=== PATIENT | female | born 1990 | race Caucasian/White ===

== ENCOUNTER 2017-10-16 09:51 | Inpatient (IN) | payer OTHER ==
[2017-10-16 10:17] VITALS: RESP 18
[2017-10-16 10:59] LABS: Basophils % (A) 0 %; Eosinophils # (A) 0.3 k/uL (0-0.7); Eosinophils % (A) 2 %; HCT 40.9 % (34.0-46.0); HGB 13.9 gm/dL (11.4-16.0); Lymphocytes # (A) 1.4 k/uL (1.0-4.8); Lymphocytes % (A) 13 %; MCH 26.8 pg (25.0-35.0); MCV 78.9 fL (80.0-100.0); Mean Platelet Volume 6.9; Microcytosis Slight; Monocytes # (A) 0.7 k/uL (0-1.0); Monocytes % (A) 7 %; Neutrophils # (A) 8.3 k/uL (1.3-7.7); Neutrophils % (A) 76 %; Platelet Count 258 k/uL (150-450); RBC 5.19 m/uL (3.80-5.40); RDW 15.3 % (11.5-15.5); WBC 10.8 k/uL (3.8-10.6)
[2017-10-16 11:08] LABS: ALT 513 U/L (9-52); AST 295 U/L (14-36); Albumin 3.8 g/dL (3.5-5.0); Alkaline Phosphatase 95 U/L (38-126); Anion Gap 13 mmol/L; Blood Urea Nitrogen 11 mg/dL (7-17); Carbon Dioxide 24 mmol/L (22-30); Chloride 103 mmol/L (98-107); Glucose 105 mg/dL (74-99); Potassium 3.9 mmol/L (3.5-5.1); Sodium 140 mmol/L (137-145); Total Bilirubin 0.7 mg/dL (0.2-1.3); Total Protein 6.5 g/dL (6.3-8.2)
[2017-10-16 11:19] LABS: Calcium 4.6 mg/dL (8.4-10.2)
[2017-10-16] MEDS ORDERED: CALCIUM CHLORIDE 1,000 MG in SODIUM CHLORIDE 0.9% 100 ML IVPB STA ×2 (11:33→22:35)
--- NOTE | 2017-10-16 12:49 | ED ---
General Adult HPI - General Chief complaint: Seizure Stated complaint: Seizure Time Seen by Provider: 10/16/17 10:26 Source: patient, RN notes reviewed Mode of arrival: wheelchair Limitations: no limitations - History of Present Illness Initial comments: Patient with 27-year-old female significant past medical history for hypothyroid , presenting for seizure. Patient does admit that she takes calcium supplement but has not been taking it over the last week or longer. She states that she was performed by her boyfriend this morning he woke up with her having a seizure. She states she does not remember this. She states she was laying in bed. Patient's mother at bedside states that she was diagnosed with hyperparathyroidism had symptoms similar to this since . States that when her calcium drops she has seizures. Patient does admit some muscle aches. She denies any other complaints or symptoms at this time. Patient denies any recent fever, chills, shortness of breath, chest pain, back pain, abdominal pain, nausea or vomiting, dysuria or hematuria, constipation or diarrhea, headaches or visual changes, or any other complaints. - Related Data Home Medications Medication Instructions Recorded Confirmed Calcitriol [Rocaltrol] 1 mcg PO DAILY 03/02/15 10/16/17 Levothyroxine Sodium [Synthroid] 50 mcg PO DAILY 03/02/15 10/16/17 Calcitriol [Rocaltrol] 0.25 mcg PO DAILY 10/16/17 10/16/17 Allergies Allergy/AdvReac Type Severity Reaction Status Date / Time No Known Allergies Allergy Verified 10/16/17 10:49 Review of Systems ROS Statement: Those systems with pertinent positive or pertinent negative responses have been documented in the HPI. ROS Other: All systems not noted in ROS Statement are negative. Past Medical History Past Medical History: Thyroid Disorder Additional Past Medical History / Comment(s): hypothyroidism. hypoparathyroidism. pt states only one working kidney. OB history: This is her first and she has had care with me since 13 weeks. A neg , abs neg, Rub nonimmune, HIV neg, increased risk of Down's on quad screen. She did receive rhogam at 29 weeks. reactiv NSTs. GBS+ History of Any Multi-Drug Resistant Organisms: None Reported Additional Past Surgical History / Comment(s): kidney surgery to "fix reflux" x2 2000. hernia repair 1993 Past Anesthesia/Blood Transfusion Reactions: No Reported Reaction Past Psychological History: Depression Smoking Status: Current every day smoker Past Alcohol Use History: Occasional Past Drug Use History: Marijuana - Past Family History Mother Family Medical History: Diabetes Mellitus, Hypertension General Exam - General Exam Comments Initial Comments: General: The patient is awake and alert, in no distress, and does not appear acutely ill. Eye: Pupils are equal, round and reactive to light, extra-ocular movements are intact. No nystagmus. There is normal conjunctiva bilaterally. No signs of icterus. Ears, nose, mouth and throat: There are moist mucous membranes and no oral lesions. Neck: The neck is supple, there is no tenderness or JVD. Cardiovascular: There is a regular rate and rhythm. No murmur, rub or gallop is appreciated. Respiratory: Lungs are clear to auscultation, respirations are non-labored, breath sounds are equal. No wheezes, stridor, rales, or rhonchi. Musculoskeletal: Normal ROM, no tenderness. Strength 5/5. Sensation intact. Pulses equal bilaterally 2+. Neurological: A&O x 3. CN II-XII intact, There are no obvious motor or sensory deficits. Coordination appears grossly intact. Speech is normal. Skin: Skin is warm and dry and no rashes or lesions are noted. Psychiatric: Cooperative, appropriate mood & affect, normal judgment. Limitations: no limitations Course Vital Signs 10/16/17 10/16/17 10/16/17 10:12 10:40 12:39 Temperature 98.1 F 99.4 F Pulse Rate 85 63 Respiratory 18 18 Rate Blood Pressure 114/61 O2 Sat by Pulse 99 98 Oximetry 10/16/17 12:40 Temperature Pulse Rate Respiratory Rate Blood Pressure 118/61 O2 Sat by Pulse Oximetry Medical Decision Making - Medical Decision Making Patient's EKG performed at 1141: Shows normal sinus rhythm at 69 bpm. FL interval 158. QRS 76. QT/QTc 494/529. Does show prolonged QT. No other acute abnormality. Patient resting completely at this time. Her calcium level IV.6. Patient has a history of hyperparathyroid. Mother stating that symptoms have been similar to this in the past she's had seizures. Patient given calcium IV here the emergency room. Will be admitted for hypocalcemia - Lab Data Result diagrams: 10/16/17 10:41 10/16/17 10:41 Lab Results 10/16/17 10/16/17 10/16/17 Range/Units 10:41 10:41 12:31 WBC 10.8 H (3.8-10.6) k/uL RBC 5.19 (3.80-5.40) m/uL Hgb 13.9 (11.4-16.0) gm/dL Hct 40.9 (34.0-46.0) % MCV 78.9 L (80.0-100.0) fL MCH 26.8 (25.0-35.0) pg MCHC 34.0 (31.0-37.0) g/dL RDW 15.3 (11.5-15.5) % Plt Count 258 (150-450) k/uL Neutrophils % 76 % Lymphocytes % 13 % Monocytes % 7 % Eosinophils % 2 % Basophils % 0 % Neutrophils # 8.3 H (1.3-7.7) k/uL Lymphocytes # 1.4 (1.0-4.8) k/uL Monocytes # 0.7 (0-1.0) k/uL Eosinophils # 0.3 (0-0.7) k/uL Basophils # 0.0 (0-0.2) k/uL Microcytosis Slight Sodium 140 (137-145) mmol/L Potassium 3.9 (3.5-5.1) mmol/L Chloride 103 (98-107) mmol/L Carbon Dioxide 24 (22-30) mmol/L Anion Gap 13 mmol/L BUN 11 (7-17) mg/dL Creatinine 0.83 (0.52-1.04) mg/dL Est GFR (CKD-EPI)AfAm >90 (>60 ml/min/1.73 sqM) Est GFR (CKD-EPI)NonAf >90 (>60 ml/min/1.73 sqM) Glucose 105 H (74-99) mg/dL Calcium 4.6 L* (8.4-10.2) mg/dL Total Bilirubin 0.7 (0.2-1.3) mg/dL AST 295 H (14-36) U/L ALT 513 H (9-52) U/L Alkaline Phosphatase 95 (38-126) U/L Total Protein 6.5 (6.3-8.2) g/dL Albumin 3.8 (3.5-5.0) g/dL Urine Color Urine Appearance (Clear) Urine pH (5.0-8.0) Ur Specific [place] (1.001-1.035) Urine Protein (Negative) Urine Glucose (UA) (Negative) Urine Ketones (Negative) Urine Blood (Negative) Urine Nitrite (Negative) Urine Bilirubin (Negative) Urine Urobilinogen (<2.0) mg/dL Ur Leukocyte Esterase (Negative) Urine RBC (0-5) /hpf Urine WBC (0-5) /hpf Ur Squamous Epith Cells (0-4) /hpf Urine Bacteria (None) /hpf Urine Mucus (None) /hpf Urine HCG, Qual Not Detected (Not Detectd) 10/16/17 Range/Units 12:31 WBC (3.8-10.6) k/uL RBC (3.80-5.40) m/uL Hgb (11.4-16.0) gm/dL Hct (34.0-46.0) % MCV (80.0-100.0) fL MCH (25.0-35.0) pg MCHC (31.0-37.0) g/dL RDW (11.5-15.5) % Plt Count (150-450) k/uL Neutrophils % % Lymphocytes % % Monocytes % % Eosinophils % % Basophils % % Neutrophils # (1.3-7.7) k/uL Lymphocytes # (1.0-4.8) k/uL Monocytes # (0-1.0) k/uL Eosinophils # (0-0.7) k/uL Basophils # (0-0.2) k/uL Microcytosis Sodium (137-145) mmol/L Potassium (3.5-5.1) mmol/L Chloride (98-107) mmol/L Carbon Dioxide (22-30) mmol/L Anion Gap mmol/L BUN (7-17) mg/dL Creatinine (0.52-1.04) mg/dL Est GFR (CKD-EPI)AfAm (>60 ml/min/1.73 sqM) Est GFR (CKD-EPI)NonAf (>60 ml/min/1.73 sqM) Glucose (74-99) mg/dL Calcium (8.4-10.2) mg/dL Total Bilirubin (0.2-1.3) mg/dL AST (14-36) U/L ALT (9-52) U/L Alkaline Phosphatase (38-126) U/L Total Protein (6.3-8.2) g/dL Albumin (3.5-5.0) g/dL Urine Color Yellow Urine Appearance Clear (Clear) Urine pH 6.5 (5.0-8.0) Ur Specific [place] 1.013 (1.001-1.035) Urine Protein Trace H (Negative) Urine Glucose (UA) Negative (Negative) Urine Ketones Negative (Negative) Urine Blood Negative (Negative) Urine Nitrite Negative (Negative) Urine Bilirubin Negative (Negative) Urine Urobilinogen 2.0 (<2.0) mg/dL Ur Leukocyte Esterase Large H (Negative) Urine RBC 1 (0-5) /hpf Urine WBC 11 H (0-5) /hpf Ur Squamous Epith Cells 2 (0-4) /hpf Urine Bacteria Rare H (None) /hpf Urine Mucus Rare H (None) /hpf Urine HCG, Qual (Not Detectd) Disposition Clinical Impression: Hypocalcemia, History of hypoparathyroidism, Seizure Disposition: ADMITTED IP TO THIS [facility] Condition: Good Is patient prescribed a controlled substance at d/c from ED?: No Referrals: Chris To MD [Primary Care Provider] - 1-2 days Time of Disposition: 13:32
[2017-10-16 13:08] LABS: Appearance,Urine Clear (Clear); Bacteria,Urine Rare /hpf; Bilirubin,Urine Negative (Negative); Blood,Urine Negative (Negative); Color,Urine Yellow; Glucose,Urine (UA) Negative (Negative); Ketones,Urine Negative (Negative); Leukocyte Esterase,Urine Large (Negative); Mucus,Urine Rare /hpf; Nitrite,Urine Negative (Negative); PH, Urine 6.5 (5.0-8.0); Protein,Urine Trace (Negative); RBC,Urine 1 /hpf (0-5); Specific Gravity,Urine 1.013 (1.001-1.035); Squamous Epithelial Cell,Urine 2 /hpf (0-4); WBC,Urine 11 /hpf (0-5)
[2017-10-16] MEDS ORDERED: ONDANSETRON 4 MG/2 ML VIAL IVP PRN (13:33)
[2017-10-16] MEDS ORDERED: ACETAMINOPHEN TAB 325 MG TAB PO PRN (13:33)
[2017-10-16] MEDS ORDERED: LORazepam 2 MG/ML INJ IV PRN (13:33)
[2017-10-16 13:39] LABS: Ionized Calcium 2.7 mg/dL (4.5-5.3)
[2017-10-16 13:54] LABS: Magnesium 1.7 mg/dL (1.6-2.3); Phosphorus 3.9 mg/dL (2.5-4.5)
[2017-10-16 18:39] VITALS: BMI 38.0
[2017-10-16] MEDS: NICOTINE 14MG/24HR PATCH TRANSDERM SCH (20:20)
[2017-10-16] MEDS: LEVOTHYROXINE 50 MCG TAB PO SCH (20:20)
--- NOTE | 2017-10-16 23:12 | HP ---
HISTORY AND PHYSICAL DATE OF SERVICE: 10/16/2017 PRESENTING COMPLAINT: Seizure. HISTORY OF PRESENTING COMPLAINT: A 27-year-old patient who has been following with Dr. To. The patient has known history of hypothyroid, hypoparathyroid since childhood and depression. The patient has not been taking medications for last 2 months. She states she has been having scheduling problems with Dr. To's office. The patient lives with her 2-year-old child. The patient was on Facebook at 5:00 this morning. It was kind of unusual and a friend decided to check on her. The patient had had 2 episodes of seizures. The patient also bit her tongue. These were generalized tonic-clonic with frothing of the mouth. The patient did not have much recollection of the episode and she was brought in the ER. Patient was found to have a calcium level of 4.6, an ionized calcium level of 2.7. The patient was given 1 amp of calcium chloride. We also gave some magnesium. Currently patient's male friend and her best lady friend were also present in the room. The patient does smoke about half a pack cigarettes a day and does 1 joint of marijuana a day a day. REVIEW OF SYSTEMS: CONSTITUTIONAL: Tired. HEENT: Some loss of hair. RESPIRATORY: None. CARDIOVASCULAR: None. GASTROINTESTINAL: None. GENITOURINARY: None. MUSCULOSKELETAL: None. DERMATOLOGICAL: None. HEMATOLOGIC: None. LYMPHATIC: None. PSYCHIATRY: Some anxiety. NEUROLOGICAL: As above. No focal weakness. PAST MEDICAL HISTORY: Hypothyroid, hypoparathyroid, 1 working kidney, scoliosis, also seizures. PAST SURGICAL HISTORY: Kidney surgery to fix reflux, hernia repair. PSYCH HISTORY: Depression. SOCIAL HISTORY: Smokes about half a pack a day, marijuana about 1 joint a day, lives with her 2-year- old child. FAMILY HISTORY: Diabetes and hypertension. HOME MEDICATIONS: 1. Synthroid 50 mcg a day. 2. Rocaltrol 1.25 mcg p.o. daily. ALLERGIES: None. EXAMINATION: Temperature 98.1, pulse 85, respirations 18, blood pressure 114/61, pulse ox 99% on room air. GENERAL APPEARANCE: Well-built, BMI 38.1. Lying in bed, awake. EYES: Pupils equal. Conjunctivae normal. HEENT: A bit of receding hairline, coarse hair. External appearance of nose and ears normal. Oral cavity normal. NECK: JVD not raised. Mass not palpable. RESPIRATORY: Effort normal. Lungs are clear. CARDIOVASCULAR: First and second sounds normal. No edema. ABDOMEN: Soft, nontender. Liver and spleen not palpable. LYMPHATIC: No lymph nodes palpable in neck or axillae. PSYCHIATRY: Alert and oriented cardiac enzymes. Mood and affect slightly anxious- appearing. NEUROLOGICAL: Pupils equal. Cranial nerve grossly intact. Power and sensation grossly intact. INVESTIGATIONS: White count 10.8, hemoglobin 3.9. BUN, creatinine are normal. Calcium is 4.6, ionized calcium is 2.7, magnesium 1.7. AST 295. ALT 513. ASSESSMENT: 1. The patient with recurrent seizures in the setting of hypocalcemia. 2. Severe hypocalcemia in a patient with known hypoparathyroidism who has not been taking her medications. 3. Medical noncompliance. 4. Hypothyroidism. 5. Increased liver enzymes, probably hepatic steatosis, need to rule out other causes. 6. Obesity; BMI 38.1. 7. Chronic nicotine dependence. Patient is a cigarette smoker. 8. Chronic marijuana use. 9. Depression, not otherwise specified. PLAN: Patient did receive 1 dose of IV calcium chloride in the ER. Will give one more dose right now. We will check, repeat the patient's calcium in the morning. Seizure precautions are in place. Will send off for hepatitis panel and also do a liver ultrasound in view of the elevated LFTs. The patient's abdominal examination is otherwise benign. Patient also will be given a nicotine patch. Seizure precautions are in place. Neurology was consulted. I had an extensive talk with the patient and friend about the importance of taking her medication, also involves the life of her 2- year-old child at home. Smoking cessation counseling was done. More than 3 minutes was spent on this aspect of the case. The patient will be given a nicotine patch. Will also get a social work professor consultation. MMODL / IJN: [id number] /
[2017-10-16] MEDS: ENOXAPARIN 40 MG/0.4 ML SYRINGE SQ SCH (23:55)
[2017-10-17 06:22] LABS: Basophils # (A) 0.1 k/uL (0-0.2); Basophils % (A) 1 %; Eosinophils # (A) 0.3 k/uL (0-0.7); Eosinophils % (A) 3 %; HCT 44.2 % (34.0-46.0); HGB 13.9 gm/dL (11.4-16.0); Lymphocytes # (A) 1.9 k/uL (1.0-4.8); Lymphocytes % (A) 22 %; MCH 25.5 pg (25.0-35.0); MCHC 31.3 g/dL (31.0-37.0); MCV 81.3 fL (80.0-100.0); Mean Platelet Volume 6.6; Monocytes # (A) 0.7 k/uL (0-1.0); Monocytes % (A) 8 %; Neutrophils # (A) 5.8 k/uL (1.3-7.7); Neutrophils % (A) 66 %; Platelet Count 239 k/uL (150-450); RBC 5.44 m/uL (3.80-5.40); RDW 15.3 % (11.5-15.5); WBC 8.9 k/uL (3.8-10.6)
[2017-10-17 06:34] LABS: ALT 512 U/L (9-52); AST 275 U/L (14-36); Albumin 3.7 g/dL (3.5-5.0); Alkaline Phosphatase 98 U/L (38-126); Anion Gap 14 mmol/L; Blood Urea Nitrogen 9 mg/dL (7-17); Carbon Dioxide 26 mmol/L (22-30); Chloride 102 mmol/L (98-107); Glucose 88 mg/dL (74-99); Magnesium 1.6 mg/dL (1.6-2.3); Potassium 3.7 mmol/L (3.5-5.1); Sodium 142 mmol/L (137-145); Total Bilirubin 0.9 mg/dL (0.2-1.3); Total Protein 6.4 g/dL (6.3-8.2)
[2017-10-17 06:44] LABS: Calcium 6.1 mg/dL (8.4-10.2)
[2017-10-17] MEDS: ENOXAPARIN 40 MG/0.4 ML SYRINGE SQ SCH (08:57)
[2017-10-17] MEDS: CALCITRIOL 0.25 MCG CAP PO SCH (08:57)
[2017-10-17] MEDS: NICOTINE 14MG/24HR PATCH TRANSDERM SCH (08:57)
[2017-10-17] MEDS ORDERED: CALCITRIOL 1 MCG PO SCH (09:00)
--- NOTE | 2017-10-17 09:44 | US ---
EXAMINATION TYPE: US abdomen limited DATE OF EXAM: 10/17/2017 COMPARISON: NONE CLINICAL HISTORY: increased LFT. EXAM MEASUREMENTS: Liver Length: 13.1 cm Gallbladder Wall: 0.2 cm CBD: 0.4 cm Right Kidney: 11.3 x 4.5 x 4.7 cm Large body habitus, patient had difficulty holding her breath. Technically difficult study. Pancreas: portions visualized wnl, somewhat limited views Liver: two hypoechoic masses seen, left lobe measures 1.9 x 1.3 x 2.3cm, right lobe measures 1.5 x 1 .3 x 1.5cm Gallbladder: wnl Evidence for sonographic Kessler's sign: no CBD: wnl Right Kidney: No hydronephrosis or masses seen, inferior pole obscured by bowel gas IMPRESSION: Exam is limited. Indeterminate liver masses. Liver MRI may be of benefit.
[2017-10-17] MEDS ORDERED: CALCIUM CHLORIDE 1,000 MG in SODIUM CHLORIDE 0.9% 100 ML IVPB STA (11:52)
[2017-10-17] MEDS ORDERED: CALCIUM CARBONATE 500 MG CHEWABLE PO PRN (12:48)
[2017-10-17] MEDS ORDERED: CALCIUM CHLORIDE 1,000 MG in SODIUM CHLORIDE 0.9% 100 ML IVPB ONE (14:00)
[2017-10-17] MEDS: IOPAMIDOL-300 CONTRAST 30 ML VIAL (ORAL USE) PO PRN ×2 (18:24→19:24)
--- NOTE | 2017-10-17 18:34 | PN ---
PROGRESS NOTE DATE OF SERVICE: 10/17/2017 PRESENTING COMPLAINT: Seizure activity. INTERVAL HISTORY: This is a patient who presented with recurrent seizure activity, has not been taking her medications at home. LFTs were up. I did order an ultrasound that is showing a couple of liver masses. EEG has been ordered by Neurology. The patient's calcium still running low. Two amps of IV calcium was ordered by me this morning. No further episodes. The patient's friend is at the bedside. REVIEW OF SYSTEMS: Done for constitutional, cardiovascular, GI, pulmonary; relevant findings as above. CURRENT MEDICATIONS: Reviewed. EXAMINATION: Temperature 97, pulse 78, respirations 18, blood pressure 115/72 pulse ox 98% on room air. GENERAL APPEARANCE: Lying in bed awake, a bit anxious-appearing. EYES: Pupils equal. Conjunctivae normal. HEENT: External nose and ears normal. Oral cavity normal. NECK: JVD not raised. Mass not palpable. RESPIRATORY: Effort normal. Lungs are fair. CARDIOVASCULAR: First and second sounds normal. No edema. ABDOMEN: Soft, nontender. Liver and spleen not palpable. PSYCHIATRY: Alert and oriented x3. Mood and affect slightly anxious-appearing. INVESTIGATIONS: White count 8.9, hemoglobin 13.9. Calcium 6.1. Liver ultrasound defining 2 masses. ASSESSMENT: 1. Recurrent epilepsy in the setting of hypocalcemia, but given that patient is having a prodrome symptoms and loss of consciousness, need to look for a central cause, too. 2. Severe hypercalcemia from hypoparathyroidism. Patient was not taking her medications. 3. Medical noncompliance. 4. Hypothyroidism. 5. Two liver masses on liver ultrasound. Will do further workup. 6. Obesity; BMI 38.1. 7. Chronic nicotine dependence. Patient is a cigarette smoker. 8. Chronic marijuana use. 9. Depression, not otherwise specified. PLAN: At this point, will go ahead and order a CT scan of the chest, abdomen and pelvis with contrast. Dr. Andujar has also ordered MRI of the brain. Consultation to GI and Oncology to be done. Will also send off for alpha fetoprotein. The patient's hepatitis screen is pending. Care was discussed with the patient in the presence of offer friend. Follow from there. MMODL / IJN: [id number] /
--- NOTE | 2017-10-17 20:36 | CT ---
EXAMINATION TYPE: CT ChestAbdPelvis w con DATE OF EXAM: 10/17/2017 COMPARISON: NONE HISTORY: Abnormal US. CT DLP: 1414.3 mGycm Automated exposure control for dose reduction was used. CONTRAST: CT scan of the chest, abdomen and pelvis is performed with Oral Contrast and with IV Contrast, patien t injected with 100 mL of Isovue 300. FINDINGS: Lung bases are clear. There is no pleural effusion. Lungs are clear of infiltrate. There is no medias tinal adenopathy. Heart size is normal. There are no hilar masses. There is 2.5 cm sharply marginated rounded mass in the medial left breast. Thoracic aorta appears normal. There is no mediastinal adeno sameer. There is no pleural effusion. There is 2 cm area of nodular enhancement in the anterior right lobe of the liver. This could be a he mangioma. Bile ducts are not dilated. Gallbladder appears normal. Spleen appears normal. There is no pancreatic mass. There is no adrenal mass. Right kidney appears normal. Left kidney shows some cortic al thinning consistent with chronic pyelonephritis. There is no retroperitoneal adenopathy. There is no ascites. Bladder distends smoothly. There is no p elvic mass. Appendix appears normal. I see no intestinal wall thickening. There are no dilated loops. The bony structures appear intact. There is no evidence of free air. There is left side L5 spondylol ysis. There is no spondylolisthesis. IMPRESSION: Nodular focus of enhancement in the anterior right lobe of the liver is probably a lorrie ioma. Changes in the left kidney consistent with chronic pyelonephritis. No other discrete liver mass identified. Left breast mass. This could be evaluated with ultrasound if clinically indicated. Margins are sharp and this has high likelihood of fibroadenoma in this relatively young patient.
[2017-10-18 06:03] LABS: ALT 568 U/L (9-52); AST 299 U/L (14-36); Albumin 3.9 g/dL (3.5-5.0); Alkaline Phosphatase 108 U/L (38-126); Anion Gap 13 mmol/L; Blood Urea Nitrogen 13 mg/dL (7-17); Calcium 7.3 mg/dL (8.4-10.2); Carbon Dioxide 25 mmol/L (22-30); Chloride 102 mmol/L (98-107); Glucose 99 mg/dL (74-99); Potassium 3.9 mmol/L (3.5-5.1); Sodium 140 mmol/L (137-145); Total Bilirubin 0.9 mg/dL (0.2-1.3); Total Protein 6.8 g/dL (6.3-8.2)
[2017-10-18] MEDS: LEVOTHYROXINE 50 MCG TAB PO SCH (06:22)
[2017-10-18] MEDS: CALCITRIOL 0.25 MCG CAP PO SCH (08:24)
[2017-10-18] MEDS: ENOXAPARIN 40 MG/0.4 ML SYRINGE SQ SCH (08:24)
--- NOTE | 2017-10-18 09:14 | CONS ---
CONSULTATION DATE OF CONSULTATION: 10/17/2017 CHIEF COMPLAINT: Seizure. HISTORY OF PRESENT ILLNESS: The patient is a 27-year-old, female, who is being evaluated today on 10/17/2017 by the neurology service per the request of Dr. Sanchez for a seizure. The patient was brought into [facility] Emergency Room after she had a witnessed generalized tonic colonic seizure at home. The patient does not recall the event. The seizure lasted approximately 4 minutes and was followed by postictal confusion and drowsiness. The patient denies any previous history of seizures. She was brought into [facility] Emergency Room for further management. In the emergency room, her comprehensive metabolic profile showed severe hypocalcemia at 4.6 and hepatic insufficiency with an AST of 295, and an ALT of 513. Her alkaline phosphatase was normal. The patient does have history of hypoparathyroidism but ran out of her medication 2 months ago and did not get it refilled. Her CBC was normal. An abdominal ultrasound was done due to her elevated liver enzymes and 2 liver lesions/masses were identified. The patient was given calcium supplementation and admitted for further workup and management. At the time of my evaluation, she is lying in her bed and appears to be in no acute distress. She has not had any further seizure-like activity. Her repeat calcium level at this time was 6.1. PAST MEDICAL HISTORY: Hypoparathyroidism, hypothyroidism, scoliosis, renal surgery, hernia repair, depression. SOCIAL HISTORY: The patient smokes 1/2 pack of cigarettes daily. She does smoke marijuana daily. She denies any alcohol or IV drug use. FAMILY HISTORY: Positive for diabetes and hypertension. HOME MEDICATIONS: Reviewed in the chart. ALLERGIES: No known drug allergies. REVIEW OF SYSTEMS: CONSTITUTIONAL: Positive for fatigue. EYES: Negative. ENT: Negative. CARDIOVASCULAR: Negative. RESPIRATORY: Negative. NEUROLOGICAL: As mentioned above. She denies any lateralizing numbness or weakness. GASTROINTESTINAL: Negative. GENITOURINARY: Negative. DERMATOLOGICAL: Negative. ENDOCRINE: As mentioned above. MUSCULOSKELETAL: Positive for occasional joint pain. PSYCHIATRIC: Positive for history of depression. PHYSICAL EXAM: Vital signs show a temperature of 98, pulse 83, respiration 18, blood pressure 120/82. GENERAL APPEARANCE: The patient is a well-developed female, who appears to be in no acute distress. HEENT: Normocephalic, atraumatic, no facial asymmetry is seen. NECK: Supple with no masses felt. CARDIOVASCULAR: Regular rate and rhythm. ABDOMEN: Nontender, nondistended. Extremities showed no edema or clubbing. NEUROLOGICAL EXAM: The patient is alert, aware and oriented x3. Speech and language are normal. Strength is full in all 4 extremities. Sensory exam was normal to light touch in all 4 extremities. No facial asymmetry is seen on cranial nerve testing. No seizure-like activity is seen. IMPRESSION: 1. Provoked seizure, generalized tonic-clonic. 2. Severe hypocalcemia. 3. Hypoparathyroidism. 4. Hepatic insufficiency. 5. Hepatic lesions. 6. Acute urinary tract infection. RECOMMENDATION: The patient did have a witnessed generalized tonic-clonic seizure at home with no previous history of seizures. Her seizure was due to her severe hypocalcemia. She has been restarted on calcium supplementation. As mentioned above, she does have history of hypoparathyroidism and has not been on medications for over 2 months. I had a lengthy discussion with her regarding the importance of medication compliance. I will order an EEG. The patient will not be started on any antiepileptic medications at this time as this was a provoked seizure. I will also order an MRI of the brain with and without contrast to rule out any intracranial abnormalities due to her abnormal liver ultrasound. I do recommend antibiotic therapy for her urinary tract infection. Continue neuro checks. I will continue to follow with you. Further recommendations to follow. Thank you for allowing me to participate in the care of your patient. If you have any questions, please feel free to contact me. DIAMANTE / IJN: [id number] /
[2017-10-18] MEDS: NICOTINE 14MG/24HR PATCH TRANSDERM SCH (11:00)
--- NOTE | 2017-10-18 12:29 | MR ---
EXAMINATION TYPE: MR brain wo/w con DATE OF EXAM: 10/18/2017 COMPARISON: 03/16/2017 HISTORY: 27-year-old female Seizures TECHNIQUE: Multiplanar, multisequence images of the brain and brainstem were acquired before and aft er administration of 9 mL IV Gadavist. Diffusion weighted imaging is performed. FINDINGS: No evidence for acute infarction, hemorrhage, mass, mass effect, midline shift, herniation, effacemen t of basal cisterns, or extra-axial fluid collection. The ventricles and sulci are age-appropriate. Major intracranial flow voids are intact. T2/FLAIR weighted sequences show a stable punctate 3 mm focus in the anterior left frontal subcortica l region suspected to represent a tiny vessel. There is symmetrical hippocampal and forniceal volumes. Midline structures demonstrate normal morphology. The craniocervical junction is normal. Post contrast images demonstrate no evidence of pathologic enhancement. Dural venous sinuses are pat ent. There is moderate mucosal thickening within the anterior ethmoid air cells and mild within the left m axillary sinus. Globes appear intact. IMPRESSION: 1. No acute intracranial abnormality seen. 2. No morphologic brain abnormality. No enhancing lesions. 3. Moderate chronic ethmoid sinus disease and mild in the left maxillary sinus.
[2017-10-18 12:53] LABS: Hepatitis A Antibody IgM Non-Reactive (Non-Reactive); Hepatitis B Core IgM Non-Reactive (Non-Reactive)
--- NOTE | 2017-10-18 13:13 | P.PN ---
Subjective Progress Note Date: 10/18/17 Principal diagnosis: Seizure Is a pleasant 27-year-old female continuing be evaluated by the neurology service for seizure. She was brought to the [facility] emergency room after having a witnessed tonic-clonic seizure. She had some significant postictal confusion in the emergency room. Initially the patient denied any previous history of seizures. Talking with her mother today she has had seizures in the past always associated with her episodes of hypocalcemia linked to her long history of hypoparathyroidism. She has been out of her medication for 2 months. She was found to have some elevated liver enzymes. Abdominal ultrasound was done to hypoechoic lesions were seen. Apparently there is a strong history of breast cancer so a breast ultrasound has been ordered. No antiepileptic medications were started and she has had no further seizure activity. An EEG has just been performed and we will evaluate that data. An MRI of the brain with and without contrast was performed and showed no space occupying lesions. There was a single stable, punctate 3 mm frontal subcortical region lesion on T2/flair. This is likely of no clinical significance. There were no enhancing lesions A repeat calcium was done today and it was 7.3. At the time my exam she is resting comfortably in bed in no acute distress. Objective - Vital Signs Vital signs: Vital Signs Temp 98.2 F 10/18/17 12:00 Pulse 86 10/18/17 12:00 Resp 18 10/18/17 12:00 BP 119/75 10/18/17 12:00 Pulse Ox 95 10/18/17 12:00 Intake & Output 10/17/17 10/18/17 10/18/17 18:59 06:59 18:59 Intake Total 950 360 Output Total 600 Balance 950 -600 360 Weight 90 kg Intake: Intake, IV Titration 200 Amount Calcium Chloride 1,000 mg 100 In Sodium Chloride 0.9% 100 ml @ 100 mls/hr IVPB ONCE ONE Rx#:[id number] Calcium Chloride 1,000 mg 100 In Sodium Chloride 0.9% 100 ml @ 100 mls/hr IVPB ONCE STA Rx#:[id number] Oral 750 360 Output: Urine 600 Other: Voiding Method Toilet # Voids 2 2 2 - Constitutional General appearance: Present: cooperative, no acute distress - EENT Eyes: Present: EOMI, PERRLA. Absent: abnormal pupil, ptosis ENT: Present: hearing grossly normal - Neck Neck: Present: normal ROM - Respiratory Respiratory: negative: prolonged expiration, prolonged inspiration - Cardiovascular Rhythm: regular - Gastrointestinal General gastrointestinal: Absent: distended - Neurologic Neurologic Comment(s): The patient is alert awake and oriented 3. Speech and language are normal. There is no facial asymmetry. Strength is 5 out of 5 in bilateral upper and lower extremities. There is no sensory deficit. No tremors or seizures are seen. Cranial nerves II through XII are intact globally. - Labs CBC & Chem 7: 10/17/17 06:03 10/18/17 05:42 Labs: Abnormal Lab Results - Last 24 Hours (Table) 10/17/17 10/18/17 Range/Units 17:54 05:42 Calcium 7.9 L 7.3 L (8.4-10.2) mg/dL AST 299 H (14-36) U/L ALT 568 H (9-52) U/L Assessment and Plan (1) Hepatic lesion Current Visit: Yes Status: Suspected Code(s): K76.9 - LIVER DISEASE, UNSPECIFIED SNOMED Code(s): 032860163 (2) Elevated LFTs Current Visit: Yes Status: Acute Code(s): R94.5 - ABNORMAL RESULTS OF LIVER FUNCTION STUDIES SNOMED Code(s): 076375618 (3) History of hypoparathyroidism Current Visit: Yes Status: Chronic Code(s): Z86.39 - PERSONAL HISTORY OF ENDO, NUTRITIONAL AND METABOLIC DISEASE SNOMED Code(s): 311763287 (4) Hypocalcemia Current Visit: Yes Status: Acute Code(s): E83.51 - HYPOCALCEMIA SNOMED Code(s): 4945400 (5) Seizure Current Visit: Yes Status: Acute Code(s): R56.9 - UNSPECIFIED CONVULSIONS SNOMED Code(s): 87989145 Plan: The patient had a witnessed generalized tonic-clonic seizure due to her severe hypocalcemia. Her mother says she has had seizure activity before when her calcium was quite low. Again she had not been on her medication for over 2 months. This is been restarted. An EEG has been performed. MRI of the brain as above was noncontributory. Continue follow-up with her abnormal liver enzymes and ultrasound. Continue neurological checks. Ring any unforeseen abnormalities on her EEG or further seizure activity, she would be cleared from a neurological standpoint. I have performed a history and physical on the above patient. I have reviewed the above note, and agree.
--- NOTE | 2017-10-18 13:41 | EEG ---
ELECTROENCEPHALOGRAM REPORT DATE OF SERVICE: 10/18/2017 REASON FOR TESTING: Seizure. CURRENT ANTIEPILEPTIC MEDICATIONS: None. DESCRIPTION OF THE PROCEDURE: This EEG was performed using a 21 channel digital electroencephalograph, following international 10-20 system. DESCRIPTION OF THE RECORDING: From the beginning of the tracing, and with patient's eyes closed, the background rhythm was mostly consisting of 8 to 9 Hz alpha frequency in the posterior occipital leads. No obvious asymmetry is seen. Frequent muscle artifacts and occasional movement artifacts are seen. Photic stimulation was performed with a good driving response seen. No pathological waves were elicited. Hyperventilation was not performed. The patient remains awake throughout the tracing. No epileptiform discharges were seen. Her EKG lead showed a regular rate and rhythm. INTERPRETATION: This awake EEG can be considered within normal limits. There was no asymmetry seen. No epileptiform discharges were noticed. The absence of epileptiform discharges does not rule out the diagnosis of epilepsy; therefore clinical correlation is recommended. DIAMANTE / JUDY: [id number] /
[2017-10-18 16:28] VITALS: BP 121/77; PULSE 82; TEMP 97.9
--- NOTE | 2017-10-18 18:32 | P.CONS ---
History of Present Illness - Reason for Consult Consult date: 10/18/17 liver mass Requesting physician: Richardson Sanchez - Chief Complaint Seizure - History of Present Illness Ms Urrutia is a 27 year old female who presented to [facility] after she was told by her Boyfriend she had a seizure. She has a known history of Hypoparathyroidism and hypothyroidism per her mother. Patient is very anxious and tearful and unable to completely answer questions that are asked, mother at bedside and providing most the history. She states that Sherron was born early and had seizures until the age of 6, when she kept her calcium levels high enough she then stopped having seizures, last seizure when patient was 6. During evaluation for seizures a CT scan of chest, abdomen and pelvis were performed and identified a left breast lesion and liver lesions (likely hemangiomas). She is dependant on tobacco and marijuana. She denies alcohol and/ or illicit drugs recently. No OTC diet pills or other vitamins. She is prescribed Zoloft and Adderal by PCP Review of Systems A 14 py review assessed and completed patient not best historian, mother assisted, all neg except HPI Past Medical History Past Medical History: Thyroid Disorder Additional Past Medical History / Comment(s): hypothyroidism. hypoparathyroidism. pt states only one working kidney. scoliosis History of Any Multi-Drug Resistant Organisms: MRSA Year Discovered:: 2014 MDRO Source:: stomach Additional Past Surgical History / Comment(s): kidney surgery to "fix reflux" x2 2000. hernia repair 1993 Past Anesthesia/Blood Transfusion Reactions: Previous Problems w/ Anesthesia Additional Past Anesthesia/Blood Transfusion Reaction / Comm: pt states anesthesia drops calcium levels and has seizures Past Psychological History: Depression Additional Psychological History / Comment(s): pt does have a therapist Smoking Status: Current every day smoker Past Alcohol Use History: Occasional Past Drug Use History: Marijuana - Past Family History Mother Family Medical History: Diabetes Mellitus, Hypertension Medications and Allergies Home Medications Medication Instructions Recorded Confirmed Type Calcitriol [Rocaltrol] 0.25 mcg PO DAILY #30 cap 10/18/17 Rx Calcitriol [Rocaltrol] 1 mcg PO DAILY #30 capsule 10/18/17 Rx Calcium Carbonate [Tums] 1,000 mg PO BID chew 10/18/17 Rx Levothyroxine Sodium [Synthroid] 50 mcg PO DAILY #30 tab 07/05/18 Rx Nicotine 14Mg/24Hr Patch [Habitrol] 1 patch TRANSDERM DAILY #30 patch 10/18/17 Rx Allergies Allergy/AdvReac Type Severity Reaction Status Date / Time No Known Allergies Allergy Verified 10/16/17 10:49 Physical Exam Vitals: Vital Signs Temp Pulse Resp BP Pulse Ox 10/18/17 08:00 98.5 F 80 18 119/76 96 10/18/17 04:00 98.8 F 90 18 129/61 94 L 10/17/17 22:52 99.2 F 93 17 135/80 96 10/17/17 20:00 97.8 F 74 18 120/62 97 10/17/17 15:29 98.0 F 80 18 109/78 98 10/17/17 12:00 97.7 F 78 18 115/72 98 Intake and Output 10/17/17 10/18/17 10/18/17 22:59 06:59 14:59 Intake Total 680 120 Output Total 600 Balance 80 120 Intake: Intake, IV Titration 200 Amount Calcium Chloride 1,000 mg 100 In Sodium Chloride 0.9% 100 ml @ 100 mls/hr IVPB ONCE ONE Rx#:[id number] Calcium Chloride 1,000 mg 100 In Sodium Chloride 0.9% 100 ml @ 100 mls/hr IVPB ONCE STA Rx#:[id number] Oral 480 120 Output: Urine 600 Other: Voiding Method Toilet Toilet # Voids 2 2 1 Weight 90 kg - Constitutional General appearance: cooperative, obese - EENT Eyes: EOMI, PERRLA, dentition normal ENT: NA/AT, normal oropharynx - Neck supple, trachea midline, no cervical adenopathy Neck: normal ROM - Respiratory Respiratory: bilateral: CTA (no increased effort) - Cardiovascular Rhythm: regular Heart sounds: normal: S1, S2 - Gastrointestinal Evidence of hernia repair and palpable scar tissue under incision which is tender General gastrointestinal: normal bowel sounds, soft, tenderness - Genitourinary Breast exam, evidence of cystic, dense breasts, no suspicious nipple changes or dippling of skin. - Integumentary Integumentary: normal, pale - Neurologic No focal Defects, very anxious and tearful, child-like Neurologic: CNII-XII intact - Musculoskeletal Musculoskeletal: generalized weakness, strength equal bilaterally - Psychiatric Psychiatric: A&O x's 3, intact judgment & insight Results CBC & Chem 7: 10/17/17 06:03 10/18/17 05:42 Labs: Abnormal Lab Results - Last 24 Hours (Table) 10/17/17 10/18/17 Range/Units 17:54 05:42 Calcium 7.9 L 7.3 L (8.4-10.2) mg/dL AST 299 H (14-36) U/L ALT 568 H (9-52) U/L CT scan - abdomen: report reviewed CT scan - chest: report reviewed CT scan - pelvis: report reviewed MRI - head: report reviewed Assessment and Plan Plan: Assessment and Recommendations: 1. Provoked Seizure - Likely secondary to Hypocalcemia - - Neurology following - Patient's mother stated she had seizures as child, last at age 6 - Anti-epilieptics 2. Abnormal Liver Lesions: - MRI of Liver is recommended as outpatient to differentiate Lesions ( Hemangioma versus other) 3. Left 2100 Breast Mass - Birads 3 - Recommend Biopsy as outpatient as 2.9cm in largest dimension - Large Family History of Breast/Ovarian/Colon cancers 4. Anxiety and Depression - Zoloft per PCP 5. Hypocalcemia - - Per Primary - Supplements 6. Known Non-adherence to medications and Follow-up Visits 7. ADHD - Adderal per Psychiatry 8. Tobacco and Marijuana Dependance Physician Attestation: I have completed the full history and physical of this patient and agree with above dictation by Francine Márquez NP. Dictated as a scribe.
--- NOTE | 2017-10-19 07:00 | DS ---
DISCHARGE SUMMARY DATE OF ADMISSION: 10/16/17. DATE OF DISCHARGE: 10/18/17. FINAL DIAGNOSES: 1. Recurrent seizures from hypocalcemia. 2. Severe hypocalcemia in a patient with known hypoparathyroidism. 3. Hypothyroidism. 4. Medical noncompliance. 5. Increased liver enzymes. 6. Hepatic lesion, likely hepatic hemangioma. 7. Obesity; BMI 38.1. 8. Chronic nicotine dependence. Patient is a cigarette smoker. 9. Chronic marijuana use. 10.Depression, not otherwise specified. CONSULTATIONS: 1. Dr. Andujar from Neurology. 2. Dr. Celestin from Oncology. HOSPITAL COURSE: This patient presented with generalized seizures. Calcium was found to be very low and down to 4.6. Ionized calcium was 2.7. Patient is given repeated doses of IV calcium. Calcium came up nicely. No further episodes. The patient has a known longstanding episode of hypothyroid and hypoparathyroidism and has not been taking her medication at least for 2 months. The patient's LFTs were elevated with AST of 295 and ALT at 513. Ultrasound did show lesions with more compatible with hemangioma. Outpatient MRI will be done for the same. The patient had acute hepatitis screen with IgG, IgM antibody, surface antigen, B core IgM antibody and hepatitis C IgG antibody were all nonreactive. The patient will follow up with Dr. Dunlap for further workup for hepatitis. The patient also was found to have a left breast mass for which breast ultrasound was done. She will follow up with Dr. Jacque Iverson for the same. The patient did have an MRI of the brain. Nothing acute was noted. EEG was negative for seizure activity. Patient also had CT scan of the chest, abdomen and pelvis that only showed some chronic changes in the left kidney and a left breast mass. I spoke at length to the patient's mother and the patient today. I told the nurse to make followup appointments. Also spoke to Dr. Celestin and I agree that liver findings are most likely hemangioma and less likely hepatic steatosis. The patient reinforced to make sure that she takes her medications. PHYSICAL EXAMINATION: ABDOMEN: Soft, nontender. PSYCH: AO x3. Mood is slightly anxious. Dry coarse hair. DISCHARGE MEDICATIONS: 1. Rocaltrol 1.25 mcg p.o. daily. 2. Tums 1000 mg p.o. b.i.d. 3. Synthroid 50 mcg p.o. daily. 4. Nicotine patch 14. FOLLOW UP: Follow with Dr. Celestin in 2 weeks, follow up with Dr. Swift on 11/19/17, follow up with Dr. Dunlap on 11/29/17. Follow up with Dr. To on 11/01/17, follow with Dr. Andujar in 1 week. The patient advised not to drive until further notice. Discharge planning more than 35 minutes. MMSHAYNE / BETTYN: [id number] /
--- NOTE | 2017-10-20 09:40 | P.CONS ---
History of Present Illness - Reason for Consult Consult date: 10/17/17 Abnormal Liver Ultrasound - History of Present Illness The patient is a 27-year-old female who presented to the emergency room with history of witnessed seizure. The patient has history of hypothyroidism and hypoparathyroidism and apparently has not been taking her medications for at least couple months. She was found to have significantly low level of calcium and is having evaluation by neurology and there is seizure issues addressed. During her evaluation she was noted to have elevated transaminases more than 5 times normal with normal alkaline phosphatase and bilirubin and was noted to have an abnormal ultrasound. Hepatitis serology was negative and a CT of the abdomen that showed the liver lesions to be consistent with hemangioma. She was also noted to have a left breast lesion for which she will be evaluated by the breast surgeon. She is dependant on tobacco and marijuana. She denies alcohol and/or illicit drugs recently. No OTC diet pills or other vitamins. She is prescribed Zoloft and Adderal by PCP. Review of Systems Constitutional: Denied fever, chills or unintentional weight loss Neurologic: No headaches, double vision or other sensory or motor changes Cardiopulmonary: No chest pains, shortness of breath or palpitations Gastrointestinal: See present illness above Genitourinary: No hematuria, dysuria or frequency Musculoskeletal:No joint swelling or pain Skin: No rashes Hematologic: No bleeding tendency Psychiatric: No anxiety or depression Past Medical History Past Medical History: Thyroid Disorder Additional Past Medical History / Comment(s): hypothyroidism. hypoparathyroidism. pt states only one working kidney. scoliosis History of Any Multi-Drug Resistant Organisms: MRSA Year Discovered:: 2014 MDRO Source:: stomach Additional Past Surgical History / Comment(s): kidney surgery to "fix reflux" x2 2000. hernia repair 1993 Past Anesthesia/Blood Transfusion Reactions: Previous Problems w/ Anesthesia Additional Past Anesthesia/Blood Transfusion Reaction / Comm: pt states anesthesia drops calcium levels and has seizures Past Psychological History: Depression Additional Psychological History / Comment(s): pt does have a therapist Smoking Status: Current every day smoker Past Alcohol Use History: Occasional Past Drug Use History: Marijuana - Past Family History Mother Family Medical History: Diabetes Mellitus, Hypertension Medications and Allergies Home Medications Medication Instructions Recorded Confirmed Type Calcitriol [Rocaltrol] 0.25 mcg PO DAILY #30 cap 10/18/17 Rx Calcitriol [Rocaltrol] 1 mcg PO DAILY #30 capsule 10/18/17 Rx Calcium Carbonate [Tums] 1,000 mg PO BID chew 10/18/17 Rx Levothyroxine Sodium [Synthroid] 50 mcg PO DAILY #30 tab 10/18/17 Rx Nicotine 14Mg/24Hr Patch [Habitrol] 1 patch TRANSDERM DAILY #30 patch 10/18/17 Rx Allergies Allergy/AdvReac Type Severity Reaction Status Date / Time No Known Allergies Allergy Verified 10/16/17 10:49 Physical Exam Vitals: Vital Signs Temp Pulse Resp BP Pulse Ox 10/17/17 15:29 98.0 F 80 18 109/78 98 10/17/17 12:00 97.7 F 78 18 115/72 98 10/17/17 08:00 98.0 F 83 18 120/82 97 10/17/17 04:00 97.4 F L 77 16 102/67 98 10/17/17 00:00 98.1 F 71 17 90/58 97 10/16/17 20:00 98.8 F 74 18 121/82 98 Intake and Output 10/17/17 10/17/17 10/17/17 06:59 14:59 22:59 Intake Total 100 270 440 Balance 100 270 440 Intake: Intake, IV Titration 100 200 Amount Calcium Chloride 1,000 mg 100 In Sodium Chloride 0.9% 100 ml @ 100 mls/hr IVPB ONCE ONE Rx#:[id number] Calcium Chloride 1,000 mg 100 In Sodium Chloride 0.9% 100 ml @ 100 mls/hr IVPB ONCE STA Rx#:[id number] Calcium Chloride 1,000 mg 100 In Sodium Chloride 0.9% 100 ml @ 100 mls/hr IVPB ONCE STA Rx#:[id number] Oral 270 240 Other: # Voids 1 1 2 Weight 93.5 kg General: Appears stated age, very pleasant in no acute distress Head and neck: Normocephalic and atraumatic, conjunctivae pink and sclerae not icteric, mucous membranes moist and pink. No masses in the neck or tracheal shifts Lungs: Clear to auscultation with no dullness to percussion Heart: Regular, no abnormal sounds, murmurs, gallops or friction Abdomen: Soft, no masses or organomegalies. No tenderness. Bowel sounds present Extremities: No clubbing, cyanosis or edema Neurologic: Alert and oriented 3. Cranial nerves grossly intact. No gross sensory or motor abnormalities Results CBC & Chem 7: 10/17/17 06:03 10/18/17 05:42 Labs: Abnormal Lab Results - Last 24 Hours (Table) 10/17/17 10/17/17 Range/Units 06:03 06:03 RBC 5.44 H (3.80-5.40) m/uL Calcium 6.1 L* (8.4-10.2) mg/dL AST 275 H (14-36) U/L ALT 512 H (9-52) U/L Assessment and Plan Assessment: Elevated transaminases could be related to her recent seizure activity as opposed to primary liver disease. Medication effects to be considered as well. I doubt that the liver lesions which are consistent with hemangioma are related to her elevated transaminases. Her hepatitis serology were negative. Other causes of hepatitis to be kept in mind. Plan: I agree with your current management. Will follow closely her liver enzymes and consider further workup including a liver biopsy if indicated. The patient will be scheduled for an MRI of the liver as outpatient for further evaluation of the liver lesions.
--- NOTE | 2017-10-22 09:27 | USB ---
Reason for exam: clinical finding. US Breast BILAT Right complete breast ultrasound includes all four quadrants, the retroareolar region and axilla. Finding demonstrates no cystic or solid lesion seen. Left complete breast ultrasound includes all four quadrants, the retroareolar region and axilla. Finding demonstrates a 2.9 x 2.6 x 1.3cm oval, solid, hypoechoic lesion at 9 o'clock. These results were verbally communicated with the patient and result sheet given to the patient on 10/18/17. ASSESSMENT: Probably benign, BI-RAD 3 RECOMMENDATION: Ultrasound of the left breast in 6 months. (to determine stability)
== END 2017-10-18 17:44 | disposition home or self-care (01) | DRG 644 ==
LOC: EC 09:51 → 5MS5E 14:21 → 6SEL 15:45
PROVIDERS: ADMIT Hospitalist; ATTEND Hospitalist
DX: E20.9 Hypoparathyroidism, unspecified (principal); N39.0 Urinary tract infection, site not specified; G40.89 Other seizures; D18.03 Hemangioma of intra-abdominal structures; E03.9 Hypothyroidism, unspecified; E66.9 Obesity, unspecified; F12.90 Cannabis use, unspecified, uncomplicated; F17.210 Nicotine dependence, cigarettes, uncomplicated; F32.9 Major depressive disorder, single episode, unspecified; K21.9 Gastro-esophageal reflux disease without esophagitis; M41.9 Scoliosis, unspecified; N63.20 Unspecified lump in the left breast, unspecified quadrant; F41.9 Anxiety disorder, unspecified; F90.9 Attention-deficit hyperactivity disorder, unspecified type; Z68.38 Body mass index [BMI] 38.0-38.9, adult; Z91.19 Patient's noncompliance with other medical treatment and regimen; Z79.899 Other long term (current) drug therapy; Z79.890 Hormone replacement therapy; Z86.14 Personal history of Methicillin resistant Staphylococcus aureus infection; Z71.6 Tobacco abuse counseling; Z83.3 Family history of diabetes mellitus; Z82.49 Family history of ischemic heart disease and other diseases of the circulatory system
CPT/HCPCS: 36415; 70553; 71260; 74177; 76705; 80053; 80074; 81001; 81025; 82105; 82310; 82330; 83735; 84100; 85025; 93005; 95816; 96365; 99285

== ENCOUNTER → 2017-11-15 | Outpatient (CLI) | payer OTHER ==
--- NOTE | 2017-11-15 22:30 | MR ---
EXAMINATION TYPE: MR liver wo/w con DATE OF EXAM: 11/15/2017 COMPARISON: CT chest abdomen and pelvis and Limited abdominal ultrasound October 17, 2017. HISTORY: Abnormal CT, liver lesion CONTRAST: Standard multiplanar, multisequence MRI departmental protocol utilizing 7.5 mL intravenous Gadavist g adolinium contrast. Imaging is performed of the abdomen focusing on the liver. FINDINGS: Exam noted suboptimal due to significant respiratory motion artifact degradation. LIVER: Liver is redemonstrated normal in size. No significant signal dropout is present. There is poo r visualization of small round lesion medial segment left hepatic lobe seen best image 27 series 501 measuring roughly 1.2 cm that is slightly T1 hypointensity and T2 hyperintensity, dynamic postcontras t images show fairly homogeneous rapid enhancement without washout. Imaging findings favor flash fill ing hemangioma. Second lesion on ultrasound is not clearly identified on CT or MRI. I do suspect a va netta subcentimeter enhancing lesion right hepatic lobe seen best series 701 image 369. This is not as well seen on other pulse sequences. Gallbladder is felt within normal limits. There is no suspicious intrahepatic or extra hepatic biliary dilatation. OTHER: There is redemonstration of heterogeneous enhancing solid mass in the lower medial quadrant le ft breast measuring 2.7 x 1.6 cm without significant washout presumed benign or fibroadenoma in patie nt this age. The spleen, pancreas, both adrenal glands are normal in size. There is asymmetric atrophy left kidney redemonstrated. There is no suspicious bowel dilatation. There is no concerning abdominal fluid yusuf ection. No suspicious abdominal ascites is seen. Underlying scoliosis is again seen. IMPRESSION: Redemonstration of 1.2 cm solid liver lesion favoring flash filling hemangioma. Suspect second subcen timeter lesion. Both presumed benign.
== END | disposition home or self-care (01) ==
LOC: RADMRIMAIN 20:42
PROVIDERS: ATTEND Internal Medicine Hematology & Oncology
DX: K76.89 Other specified diseases of liver (principal)
CPT/HCPCS: 74183; A9581